=== PATIENT | male | born 1995 | race American Indian/Alaskan Native ===

== ENCOUNTER 2022-03-07 15:35 | Emergency (ER) | payer OTHER ==
[2022-03-07] MEDS ORDERED: ACETAMINOPHEN 500 MG TAB PO ONE (21:05)
[2022-03-07] MEDS ORDERED: IBUPROFEN 600 MG TAB PO ONE (21:05)
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
[2022-03-07 23:01] VITALS: BP 142/84
== END 2022-03-07 23:00 | disposition home or self-care (01) ==
LOC: ED 15:35
DX: S46.911A Strain of unspecified muscle, fascia and tendon at shoulder and upper arm level, right arm, initial encounter (principal); S53.401A Unspecified sprain of right elbow, initial encounter; E11.9 Type 2 diabetes mellitus without complications; J45.909 Unspecified asthma, uncomplicated; M62.830 Muscle spasm of back; V89.2XXA Person injured in unspecified motor-vehicle accident, traffic, initial encounter; Y93.89 Activity, other specified; Y92.89 Other specified places as the place of occurrence of the external cause; Y99.8 Other external cause status
CPT/HCPCS: 72070; 99283